=== PATIENT | male | born 1955 | race African-American/Black ===

== ENCOUNTER 2018-12-26 15:17 | Inpatient (IN) | payer BC, MEDICAID ==
[2018-12-26] VITALS (32 sets, daily range): BP systolic 100–187; BP diastolic 55–118
[~2018-12-26] VITALS: Ht 177.8 cm; Wt 82.8 kg
[2018-12-26 15:55] LABS: CLARITY URINE CLEAR (CLEAR); COLOR URINE YELLOW (YELLOW); KETONES URINE NEGATIVE (NEGATIVE); LEUKOCYTE ESTERASE URINE NEGATIVE (NEGATIVE); NITRITE URINE NEGATIVE (NEGATIVE); OCCULT BLOOD URINE 2+ (NEGATIVE); PROTEIN URINE 3+ (NEGATIVE); SPECIFIC GRAVITY URINE 1.013 (1.005-1.030); UROBILINOGEN URINE 0.2 E.U./dL (0.2-1.0)
[2018-12-26 16:05] LABS: HEMATOCRIT. 48.5 % (42.0-52.0); HEMOGLOBIN. 16.7 g/dL (14.0-18.0); MEAN CORPUSCULAR VOLUME 90.3 fL (80.0-94.0); MEAN PLATELET VOLUME 9.3 fl (7.4-10.4); PLATELET 252 x1000/uL (130-400); RED BLOOD CELL COUNT 5.37 mill/uL (4.7-6.1); RED CELL DISTRIBUTION WIDTH 14.2 % (11.6-14.6)
[2018-12-26 16:06] LABS: *AMPHETAMINES SCREEN URINE NEGATIVE (NEGATIVE); *BARBITURATES SCREEN URINE NEGATIVE (NEGATIVE); *BENZODIAZEPINES SCREEN URINE NEGATIVE (NEGATIVE); *COCAINE SCREEN URINE PRESUMTIVE POSITIVE (NEGATIVE); METHADONE URINE SCREEN NEGATIVE (NEGATIVE); OPIATES URINE SCREEN NEGATIVE (NEGATIVE)
[2018-12-26 16:07] LABS: CANNABINOID URINE SCREEN NEGATIVE (NEGATIVE); PHENCYCLIDINE URINE SCREEN NEGATIVE (NEGATIVE)
[2018-12-26 16:10] LABS: INR 1.1; PROTHROMBIN TIME 11.1 sec (9.6-11.0)
[2018-12-26 16:12] LABS: BG BASE EXCESS 3.9 mmol/L (-2.0-2.0); BG CARBOXYHEMOGLOBIN 0.7 % (0.5-1.5); BG DEOXYHEMOGLOBIN 0.3 % (0.0-5.0); BG FRACTION INSPIRED OXYGEN 100; BG HCO3 ACT 29.1 mmol/L (22.0-26.0); BG METHEMOGLOBIN 0.5 % (0.0-1.5); BG OXYGEN SATURATION 99.7 % (92.0-98.5); BG OXYHEMOGLOBIN 98.5 % (94.0-97.0); BG PH 7.428 (7.350-7.450); BG PO2 406.7 mmHg (75.0-100.0); BG SAMPLE SITE RIGHT RADIAL; BG TIDAL VOLUME(mL) 500 mL; BG TOTAL HEMOGLOBIN 17.4 g/dL (12.0-18.0); BG VENT MODE VENT - A/C; BG VENT RATE 14 set
[2018-12-26] MEDS ORDERED: CEFEPIME 1,000 MG in DEXTROSE 5% WATER 50 ML IV STA (16:35)
[2018-12-26] MEDS ORDERED: SODIUM CHLORIDE 0.9% 1000ML BAG (SEPSIS BOLUS) IV ONE (16:45)
[2018-12-26 16:46] LABS: PLATELET ESTIMATE NORMAL
[2018-12-26] MEDS ORDERED: ETOMIDATE 2MG/ML 10ML VIAL IV ONE (17:00)
[2018-12-26] MEDS ORDERED: SUCCINYLCHOLINE CHLORIDE 200MG/10ML IV ONE (17:00)
[2018-12-26 17:06] LABS: CHLORIDE 105 mEq/L (98-107)
[2018-12-26 17:11] LABS: ETHANOL BLOOD < 10 mg/dL
[2018-12-26] MEDS ORDERED: MANNITOL 12.5G (25%) VIAL 50ML IV ONE (17:15)
[2018-12-26] MEDS ORDERED: LEVETIRACETAM 500MG PREMIX 100 ML IV ONE (17:15)
[2018-12-26] MEDS ORDERED: MAGNESIUM 2 G PREMIX 50 ML IV ONE (17:15)
[2018-12-26] MEDS ORDERED: NICARDIPINE 40MG/200ML PREMIX 200 ML IV SCH (17:15)
[2018-12-26] MEDS ORDERED: DEXAMETHASONE 10 MG/ML VIAL IV ONE (17:15)
[2018-12-26] MEDS ORDERED: VANCOMYCIN 1 G PREMIX 200 ML IV NR (17:15)
[2018-12-26] MEDS: NICARDIPINE 40MG/200ML PREMIX 200 ML IV SCH (17:27)
[2018-12-26] MEDS ORDERED: SODIUM CHLORIDE 0.9% 1,000 ML IV SCH (19:11)
[2018-12-26] MEDS ORDERED: DIPHENHYDRAMINE 50MG/ML VIAL IV PRN (19:15)
[2018-12-26] MEDS ORDERED: ONDANSETRON HCL 4MG/2ML INJ IV PRN (19:15)
[2018-12-26] MEDS ORDERED: ACETAMINOPHEN 325MG TABLET PO PRN (19:15)
[2018-12-26] MEDS ORDERED: NICARDIPINE 100 MG in SODIUM CHLORIDE 0.9% 60 ML IV PRN (20:00)
[2018-12-26] MEDS ORDERED: MORPHINE SULFATE 10 MG/ML CPJ IV SCH (20:00)
[2018-12-26] MEDS ORDERED: IOHEXOL-350 100 ML BOTTLE ONE (20:19)
[2018-12-26] MEDS: NICARDIPINE 100 MG in SODIUM CHLORIDE 0.9% 60 ML IV PRN (21:16)
[2018-12-26] MEDS: MORPHINE SULFATE 100 MG in DEXT 5% WATER 90 ML IV PRN (21:18)
[2018-12-26] MEDS: DEXT 5%/LACTATED RINGERS 1,000 ML IV SCH (21:19)
[2018-12-26] MEDS ORDERED: VECURONIUM BROMIDE 10 MG/VIAL IV NR (21:30)
[2018-12-26] MEDS ORDERED: DEXTROSE 50% WATER 50ML SYRINGE IV PRN (21:30)
[2018-12-26 21:56] LABS: CREATINE KINASE MB FRACTION 5.5 ng/mL (0.5-3.6)
[2018-12-26] MEDS ORDERED: CEFAZOLIN SODIUM 1000MG/VIAL IV SCH (22:00)
[2018-12-26] MEDS ORDERED: CEFTRIAXONE 1 G PREMIX 50 ML IV SCH (22:00)
[2018-12-26] MEDS ORDERED: IPRATROPIUM/ALBUTEROL 0.5-3(2.5)MG/3ML NEB HHN PRN (22:15)
[2018-12-27] VITALS (95 sets, daily range): BP systolic 86–132; BP diastolic 52–91
[2018-12-27] MEDS: DEXAMETHASONE 4MG/ML 1ML VIAL IV SCH ×5 (00:11→23:16)
[2018-12-27] MEDS: BLOOD SUGAR DIAGNOSTIC STRIP TEST SCH ×4 (00:22→17:58)
[2018-12-27] MEDS: INSULIN LISPRO 100 UNITS/ML SUBCUT SCH ×4 (00:23→18:48)
[2018-12-27] MEDS: IPRATROPIUM/ALBUTEROL 0.5-3(2.5)MG/3ML NEB HHN SCH ×4 (02:09→20:29)
[2018-12-27 05:46] LABS: BASOPHILS % 0.3 % (0.0-2.0); HEMATOCRIT. 41.7 % (42.0-52.0); HEMOGLOBIN. 14.4 g/dL (14.0-18.0); LYMPHOCYTES % 7.4 % (20.0-50.0); MEAN CORPUSCULAR HEMOGLOBIN 31.3 pg (28.0-32.0); MEAN CORPUSCULAR VOLUME 90.6 fL (80.0-94.0); MEAN PLATELET VOLUME 9.3 fl (7.4-10.4); MONOCYTES % 7.2 % (2.0-8.0); NEUTROPHILS % 85.1 % (40.0-76.0); PLATELET 203 x1000/uL (130-400); RED CELL DISTRIBUTION WIDTH 14.2 % (11.6-14.6)
[2018-12-27 06:19] LABS: CHLORIDE 105 mEq/L (98-107)
[2018-12-27 06:27] LABS: LDL CHOLESTEROL 96 mg/dL (5-100)
[2018-12-27 06:28] LABS: CREATINE KINASE 624 IU/L (39-308); HDL CHOLESTEROL 62 mg/dL (40-59)
[2018-12-27 06:30] LABS: CREATINE KINASE MB FRACTION 4.3 ng/mL (0.5-3.6)
[2018-12-27] MEDS ORDERED: BLOOD SUGAR DIAGNOSTIC STRIP TEST SCH (06:30)
[2018-12-27] MEDS ORDERED: INSULIN LISPRO 100 UNITS/ML SUBCUT SCH (07:00)
[2018-12-27 08:01] LABS: BG BASE EXCESS 4.5 mmol/L (-2.0-2.0); BG CARBOXYHEMOGLOBIN 0.3 % (0.5-1.5); BG METHEMOGLOBIN 0.3 % (0.0-1.5); BG OXYHEMOGLOBIN 94.4 % (94.0-97.0); BG PCO2 47.6 mmHg (35.0-45.0); BG PH 7.417 (7.350-7.450); BG PO2 78.7 mmHg (75.0-100.0); BG SAMPLE SITE RIGHT BRACHIAL; BG TIDAL VOLUME(mL) 500 mL; BG TOTAL HEMOGLOBIN 14.8 g/dL (12.0-18.0); BG VENT MODE VENT - A/C; BG VENT RATE 14 set
[2018-12-27] MEDS: LEVETIRACETAM 500 MG in SODIUM CHLORIDE 0.9% 100 ML IV SCH ×2 (09:35→20:57)
[2018-12-27] MEDS ORDERED: LACTATED RINGERS 1,000 ML IV ONE (13:00)
[2018-12-27] MEDS ORDERED: FAMOTIDINE 20MG/2ML VIAL IV SCH (14:00)
[2018-12-27] MEDS: DEXT 5%/LACTATED RINGERS 1,000 ML IV SCH (18:46)
[2018-12-27] MEDS: CEFTRIAXONE 1 G PREMIX 50 ML IV SCH (21:53)
[2018-12-27] MEDS: PANTOPRAZOLE SODIUM 40 MG/VIAL IV SCH (21:53)
[2018-12-27] MEDS: METRONIDAZOLE 500 MG PREMIX 100 ML IV SCH (23:17)
[2018-12-28] VITALS (99 sets, daily range): BP systolic 90–169; BP diastolic 57–95
[2018-12-28] MEDS: BLOOD SUGAR DIAGNOSTIC STRIP TEST SCH ×5 (00:04→23:58)
[2018-12-28] MEDS: INSULIN LISPRO 100 UNITS/ML SUBCUT SCH ×5 (00:07→23:57)
[2018-12-28] MEDS: IPRATROPIUM/ALBUTEROL 0.5-3(2.5)MG/3ML NEB HHN SCH ×4 (01:41→20:31)
[2018-12-28] MEDS: DEXAMETHASONE 4MG/ML 1ML VIAL IV SCH ×4 (05:26→23:57)
[2018-12-28] MEDS: METRONIDAZOLE 500 MG PREMIX 100 ML IV SCH ×3 (05:28→22:02)
[2018-12-28 05:37] LABS: HEMATOCRIT. 36.2 % (42.0-52.0); HEMOGLOBIN. 12.1 g/dL (14.0-18.0); MEAN CORPUSCULAR HEMOGLOBIN 30.6 pg (28.0-32.0); MEAN CORPUSCULAR VOLUME 91.5 fL (80.0-94.0); MEAN PLATELET VOLUME 9.7 fl (7.4-10.4); PLATELET 174 x1000/uL (130-400); RED BLOOD CELL COUNT 3.95 mill/uL (4.7-6.1); RED CELL DISTRIBUTION WIDTH 14.4 % (11.6-14.6)
[2018-12-28] MEDS: DEXT 5%/LACTATED RINGERS 1,000 ML IV SCH ×3 (05:42→23:58)
[2018-12-28 06:22] LABS: CHLORIDE 106 mEq/L (98-107)
[2018-12-28 06:32] LABS: PHOSPHORUS 6.8 mg/dL (2.5-4.9)
[2018-12-28 06:33] LABS: CREATINE KINASE 567 IU/L (39-308)
[2018-12-28 07:38] LABS: HEPATITIS B SURFACE ANTIGEN NEGATIVE
[2018-12-28 08:27] LABS: BG BASE EXCESS -0.3 mmol/L (-2.0-2.0); BG CARBOXYHEMOGLOBIN 0.3 % (0.5-1.5); BG DEOXYHEMOGLOBIN 5.9 % (0.0-5.0); BG FRACTION INSPIRED OXYGEN 40; BG HCO3 ACT 24.7 mmol/L (22.0-26.0); BG METHEMOGLOBIN 0.2 % (0.0-1.5); BG OXYGEN SATURATION 94.1 % (92.0-98.5); BG OXYHEMOGLOBIN 93.6 % (94.0-97.0); BG PCO2 41.9 mmHg (35.0-45.0); BG PH 7.389 (7.350-7.450); BG SAMPLE SITE RIGHT RADIAL; BG TIDAL VOLUME(mL) 500 mL; BG TOTAL HEMOGLOBIN 12.8 g/dL (12.0-18.0); BG VENT MODE VENT - A/C; BG VENT RATE 14 set
[2018-12-28] MEDS: LEVETIRACETAM 500 MG in SODIUM CHLORIDE 0.9% 100 ML IV SCH ×2 (08:43→20:16)
[2018-12-28 08:44] LABS: PLATELET ESTIMATE NORMAL
[2018-12-28] MEDS: NICARDIPINE 100 MG in SODIUM CHLORIDE 0.9% 60 ML IV PRN ×2 (08:45→22:02)
[2018-12-28] MEDS: PANTOPRAZOLE SODIUM 40 MG/VIAL IV SCH ×2 (08:46→17:12)
[2018-12-28] MEDS: SUCRALFATE 1 G/10 ML UDC PO SCH ×2 (17:12→20:15)
[2018-12-28] MEDS: CEFTRIAXONE 1 G PREMIX 50 ML IV SCH (21:14)
[2018-12-28] MEDS: MORPHINE SULFATE 100 MG in DEXT 5% WATER 90 ML IV PRN (22:30)
[2018-12-29] VITALS (82 sets, daily range): BP systolic 110–172; BP diastolic 57–101
[2018-12-29 05:33] LABS: HEMATOCRIT. 36.5 % (42.0-52.0); HEMOGLOBIN. 12.2 g/dL (14.0-18.0); MEAN CORPUSCULAR HEMOGLOBIN 30.7 pg (28.0-32.0); MEAN CORPUSCULAR VOLUME 91.6 fL (80.0-94.0); MEAN PLATELET VOLUME 9.8 fl (7.4-10.4); PLATELET 180 x1000/uL (130-400); RED BLOOD CELL COUNT 3.98 mill/uL (4.7-6.1); RED CELL DISTRIBUTION WIDTH 14.2 % (11.6-14.6)
[2018-12-29] MEDS: METRONIDAZOLE 500 MG PREMIX 100 ML IV SCH (05:51)
[2018-12-29] MEDS: DEXAMETHASONE 4MG/ML 1ML VIAL IV SCH (05:51)
[2018-12-29] MEDS: BLOOD SUGAR DIAGNOSTIC STRIP TEST SCH (05:58)
[2018-12-29] MEDS: INSULIN LISPRO 100 UNITS/ML SUBCUT SCH (05:58)
[2018-12-29] MEDS: SUCRALFATE 1 G/10 ML UDC PO SCH (07:29)
[2018-12-29] MEDS: NICARDIPINE 100 MG in SODIUM CHLORIDE 0.9% 60 ML IV PRN (08:31)
[2018-12-29] MEDS: IPRATROPIUM/ALBUTEROL 0.5-3(2.5)MG/3ML NEB HHN SCH (08:35)
[2018-12-29] MEDS: LEVETIRACETAM 500 MG in SODIUM CHLORIDE 0.9% 100 ML IV SCH (08:52)
[2018-12-29] MEDS: PANTOPRAZOLE SODIUM 40 MG/VIAL IV SCH (08:52)
[2018-12-29 09:57] LABS: PLATELET ESTIMATE NORMAL
[2018-12-29 13:06] LABS: *CREATININE RANDOM URINE 179.3 mg/dL (Not Estab.); MICROALBUMIN RANDOM URINE 112.9 ug/mL (Not Estab.)
[2018-12-29] MEDS: LORAZEPAM 2MG/ML CPJ IV PRN (15:32)
[2018-12-29] MEDS: MORPHINE SULFATE 250 MG in DEXT 5% WATER 240 ML IV PRN (16:55)
[2018-12-29] MEDS: ATROPINE SULFATE 1% OPHTH 2ML SL SCH ×2 (18:29→22:53)
[2018-12-29] MEDS ORDERED: CEFTRIAXONE 1,000 MG in DEXTROSE 5% WATER 50 ML IV SCH (21:00)
[2018-12-30] VITALS (10 sets, daily range): BP systolic 88–127; BP diastolic 55–75
[2018-12-30] MEDS: MORPHINE SULFATE 250 MG in DEXT 5% WATER 240 ML IV PRN ×2 (01:07→07:26)
[2018-12-30] MEDS: LORAZEPAM 2MG/ML CPJ IV PRN (06:14)
[2018-12-30] MEDS: ATROPINE SULFATE 1% OPHTH 2ML SL SCH (06:14)
[2018-12-30 13:11] LABS: ANTI-MYELOPEROXIDASE AB < 9.0 U/mL (0.0-9.0); ANTI-PROTEINASE 3 ABS < 3.5 U/mL (0.0-3.5); ATYPICAL P-ANCA <1:20 titer (Neg:<1:20); CYTOPLASMIC C-ANCA <1:20 titer (Neg:<1:20); PERINUCLEAR P-ANCA <1:20 titer (Neg:<1:20)
== END 2018-12-30 09:47 | disposition expired | DRG 710 ==
LOC: ER 15:17 → MICUNO 19:09 → ENRESERV 19:12 → EDBEDREQ 19:13
PROVIDERS: ADMIT Internal Medicine; ATTEND Internal Medicine
PROC: 5A1945Z Respiratory Ventilation, 24-96 Consecutive Hours (ICD-10-PCS; principal; 2018-12-26)
PROC: 009600Z Drainage of Cerebral Ventricle with Drainage Device, Open Approach (ICD-10-PCS; 2018-12-26)
PROC: 0BH17EZ Insertion of Endotracheal Airway into Trachea, Via Natural or Artificial Opening (ICD-10-PCS; 2018-12-26)
DX: A41.9 Sepsis, unspecified organism (principal); G93.6 Cerebral edema; I61.5 Nontraumatic intracerebral hemorrhage, intraventricular; J96.00 Acute respiratory failure, unspecified whether with hypoxia or hypercapnia; I61.0 Nontraumatic intracerebral hemorrhage in hemisphere, subcortical; R40.20 Unspecified coma; J69.0 Pneumonitis due to inhalation of food and vomit; G92 Toxic encephalopathy; M62.82 Rhabdomyolysis; N28.1 Cyst of kidney, acquired; G91.9 Hydrocephalus, unspecified; D64.9 Anemia, unspecified; E87.6 Hypokalemia; F14.10 Cocaine abuse, uncomplicated; F17.210 Nicotine dependence, cigarettes, uncomplicated; I13.10 Hypertensive heart and chronic kidney disease without heart failure, with stage 1 through stage 4 chronic kidney disease, or unspecified chronic kidney disease; I16.1 Hypertensive emergency; N17.9 Acute kidney failure, unspecified; N18.9 Chronic kidney disease, unspecified; K29.70 Gastritis, unspecified, without bleeding; Z66 Do not resuscitate; Z51.5 Encounter for palliative care; R31.9 Hematuria, unspecified; R94.31 Abnormal electrocardiogram [ECG] [EKG]; K92.0 Hematemesis; Z98.2 Presence of cerebrospinal fluid drainage device; Z82.49 Family history of ischemic heart disease and other diseases of the circulatory system; R40.2430 Glasgow coma scale score 3-8, unspecified time; Z63.8 Other specified problems related to primary support group
CPT/HCPCS: 31500; 36415; 36600; 70496; 70498; 71045; 76700; 76770; 80048; 80061; 80305; 80307; 80320; 80329; 81003; 82043; 82140; 82375; 82550; 82553; 82570; 82805; 82962; 83036; 83520; 83605; 83735; 83880; 84100; 84300; 84443; 84484; 86256; 86803; 86850; 86900; 87070; 87340; 93005; 93306; 93970; 94002; 94003; 94640; 96365; 99291; C9113; J0330; J0692; J0696; J1100; J1815; J1953; J2060; J2150; J2270; J2274; J3370; J3475; J3490; J7050; J7060; J7121; J7620; Q9967; G0480